=== PATIENT | male | born 1970 | race Caucasian/White ===

== ENCOUNTER → 2020-03-08 09:18 | Outpatient (BNVA) | payer SELFPAY | PROVIDERS: PCP Internal Medicine; Visit Provider Physician Assistant | DX: Z02.79 Encounter for issue of other medical certificate (principal) ==

== ENCOUNTER 2020-12-23 07:39 | Outpatient (REF) | payer BC, SELFPAY | END 2020-12-23 07:40 | disposition home or self-care (01) | LOC: HO.LAB 07:39 | PROVIDERS: PCP Internal Medicine; Visit Provider Internal Medicine | DX: Z20.822 Contact with and (suspected) exposure to COVID-19 (principal) | CPT/HCPCS: C9803; U0003; U0005 ==

== ENCOUNTER 2021-11-29 13:11 | Outpatient (REF) | payer OTHER, SELFPAY ==
[2021-11-29 15:38] LABS: CT PCR NOT DETECTED (Not Detect.); NG PCR NOT DETECTED (Not Detect.)
[2021-11-30 04:01] LABS: HIV AB/AG Nonreactive (Nonreactive); HIV Num 1 0.07 S/CO (0.00-0.99)
[2021-11-30 05:45] LABS: Syphilis Screen Nonreactive (Nonreactive)
== END 2021-11-29 13:12 | disposition home or self-care (01) ==
LOC: HO.HMGCLDS 13:11
PROVIDERS: Visit Provider Internal Medicine
DX: Z11.3 Encounter for screening for infections with a predominantly sexual mode of transmission (principal); Z11.4 Encounter for screening for human immunodeficiency virus [HIV]
CPT/HCPCS: 36415; 86780; 87389; 87491; 87591

== ENCOUNTER → 2022-02-08 15:01 | Outpatient (BNVA) | payer SELFPAY | PROVIDERS: PCP Internal Medicine; Visit Provider Physician Assistant | DX: Z02.79 Encounter for issue of other medical certificate (principal) ==

== ENCOUNTER → 2022-08-09 10:10 | Outpatient (BNVA) | payer OTHER, SELFPAY | PROVIDERS: PCP Internal Medicine; Visit Provider Physician Assistant | DX: S46.211A Strain of muscle, fascia and tendon of other parts of biceps, right arm, initial encounter (principal); X58.XXXA Exposure to other specified factors, initial encounter; M75.01 Adhesive capsulitis of right shoulder; M25.811 Other specified joint disorders, right shoulder | CPT/HCPCS: 73030; 99204 ==

== ENCOUNTER → 2022-08-21 09:07 | Outpatient (BNVA) | payer OTHER, SELFPAY | PROVIDERS: PCP Internal Medicine; Visit Provider Physician Assistant Medical | DX: S46.211D Strain of muscle, fascia and tendon of other parts of biceps, right arm, subsequent encounter (principal); X50.0XXD Overexertion from strenuous movement or load, subsequent encounter; M75.01 Adhesive capsulitis of right shoulder; M25.811 Other specified joint disorders, right shoulder | CPT/HCPCS: 99213 ==

== ENCOUNTER 2022-08-30 17:32 | Outpatient (REF) | payer OTHER, SELFPAY ==
--- NOTE | ~2022-08-30 | MR_ITS ---
EXAMINATION: MR SHOULDER WITHOUT CONTRAST, RIGHT CLINICAL INFORMATION: Right shoulder pain and decreased range of motion. Lifting injury. Evaluate for a biceps tendon tear. COMPARISON: Right shoulder radiographs dated 08/09/2022. TECHNIQUE: MRI of the shoulder without contrast was performed on a high-field scanner. FINDINGS: ROTATOR CUFF: Full-thickness versus near full-thickness bursal surface tearing of the supraspinatus tendon measuring up to 2.4 x 1.7 cm (AP by ML). There may be thin articular surface tendon fibers remaining intact. Mild infraspinatus tendinosis with distal intrasubstance/articular surface fraying/partial tearing with fluid extending proximally along the myotendinous junction. Mild subscapularis tendinosis. No muscle atrophy or fatty infiltration. BICEPS: Absence of the proximal long head biceps tendon, consistent with a complete tear and tendon retraction. CORACOACROMIAL ARCH: The undersurface of the acromion is flat with small subacromial spurs. Severe acromioclavicular osteoarthritis. Fluid and edema within the subacromial-subdeltoid bursa which may represent mild bursitis or be related to a full-thickness component of the rotator cuff tendon tear. LABRUM/CAPSULE: Increased T2 signal and heterogeneity throughout the superior, posterosuperior, and posterior labrum, consistent with degenerative tearing. Intact inferior joint capsule. GLENOHUMERAL JOINT/MARROW: Mild articular cartilage signal heterogeneity with tiny marginal osteophytes. Posterosuperior glenoid subchondral cystic change. Trace joint effusion. MR/MR shoulder RT wo con IMPRESSION: 1. Full-thickness versus near full-thickness bursal surface tear of the supraspinatus tendon measuring 2.4 x 1.7 cm (AP x ML) with thin articular surface tendon fibers remaining intact. Mild infraspinatus tendinosis with distal intrasubstance/articular surface fraying/partial tearing. Mild subscapularis tendinosis. 2. Complete tear and retraction of the proximal long head biceps tendon. 3. Severe acromioclavicular osteoarthritis with small subacromial spurs. Fluid and edema within the subacromial-subdeltoid bursa which may represent mild bursitis or be related to a full-thickness component of the rotator cuff tendon tear. 4. Degenerative tearing throughout the superior, posterosuperior, and posterior labrum. 5. Mild glenohumeral osteoarthritis and trace joint effusion.
== END 2022-08-30 17:33 | disposition home or self-care (01) ==
LOC: HO.MRI 17:32
PROVIDERS: Visit Provider Physician Assistant Medical
DX: S46.001D Unspecified injury of muscle(s) and tendon(s) of the rotator cuff of right shoulder, subsequent encounter (principal)
CPT/HCPCS: 73221

== ENCOUNTER → 2022-09-05 08:38 | Outpatient (BNVA) | payer OTHER, SELFPAY | PROVIDERS: PCP Internal Medicine; Visit Provider Physician Assistant Medical | DX: S46.211D Strain of muscle, fascia and tendon of other parts of biceps, right arm, subsequent encounter (principal); X58.XXXD Exposure to other specified factors, subsequent encounter; M75.01 Adhesive capsulitis of right shoulder; M25.811 Other specified joint disorders, right shoulder | CPT/HCPCS: 99213 ==

== ENCOUNTER 2022-09-14 08:03 | Outpatient (REF) | payer OTHER, SELFPAY ==
--- NOTE | ~2022-09-14 | XR_ITS ---
EXAMINATION: XR SHOULDER, RIGHT CLINICAL INFORMATION: Pain. COMPARISON: MRI right shoulder dated 08/30/2022; right shoulder radiographs dated 08/09/2022. TECHNIQUE: AP external rotation, Grashey, scapular Y, and axillary views of the right shoulder. FINDINGS: Bony alignment and mineralization are normal. The glenohumeral joint is intact. The acromioclavicular and coracoclavicular intervals are normal. There is mild osteoarthritic change of the right acromioclavicular joint. A small distal acromial osteophyte is seen, and there is cortical irregularity of the greater tuberosity of the proximal right humerus. There is mild calcific tendinitis of the right rotator cuff. No foreign body is seen. There is no right pneumothorax XR/XR shoulder RT min 2V IMPRESSION: 1. No fracture or dislocation is seen. 2. There is mild osteoarthritic change of the right acromioclavicular joint. 3. Findings are consistent with right rotator cuff impingement and mild calcific tendinitis.
== END 2022-09-14 08:04 | disposition home or self-care (01) ==
LOC: HO.HOSX 08:03
PROVIDERS: Visit Provider Orthopaedic Surgery
DX: M75.101 Unspecified rotator cuff tear or rupture of right shoulder, not specified as traumatic (principal)
CPT/HCPCS: 73030; 99202

== ENCOUNTER → 2022-09-21 09:21 | Outpatient (BNVA) | payer OTHER, SELFPAY | PROVIDERS: PCP Internal Medicine; Visit Provider Orthopaedic Surgery | DX: M75.101 Unspecified rotator cuff tear or rupture of right shoulder, not specified as traumatic (principal); S46.211A Strain of muscle, fascia and tendon of other parts of biceps, right arm, initial encounter | CPT/HCPCS: 99212 ==

== ENCOUNTER 2022-10-27 12:22 | Outpatient (AMB) | payer OTHER, SELFPAY ==
[2022-10-27 12:33] VITALS: BMI 31.6
--- NOTE | 2022-10-27 12:33 | A.OFFVIS_ITS ---
Intake Vital Signs 10/27/22 12:33 Height 5 ft 10 in Weight 220 lb BMI 31.6 Intake Visit Reasons: Pre-Op RT RTC repair 11/01/22NE Intake Note: Jonathan 52 yr old male presents today for his Pre-op visit for his right RTC repair schedule for 11/01/[address] Gill. Pain management agreement signed and reviewed. Allergies No Known Allergies Allergy (Unverified 10/27/22 12:35) HPI Pre-Op RT RTC repair 11/01/22NE HPI Details 52-year-old 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 male who presents in the office today for his preoperative history and physical exam prior to a right rotator cuff repair to be performed on 11/01/[address] Gill. This is a work related injury. 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 Patient has no known allergy history. Patient is currently taking, as follows: -Methocarbamol 750 mg PO Q8H PRN Patient has no known medical history. Patient has no known surgical history. Patient has a social history, as follows: -Tobacco; current user, 1 pack per day. 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 Review of Systems Const All systems reviewed & are unremarkable except as noted in HPI and below Physical Exam Vital Signs: BMI result Body Mass Index 31.6 Const General: cooperative, healthy appearing, comfortable, no acute distress, well developed, alert and awake Orientation/consciousness: patient oriented x3 HEENT Head: Yes normal to inspection, Yes normocephalic and Yes atraumatic Eyes General: appearance normal, both eyes and all related structures EOM: EOMs intact bilaterally Neck Neck: Yes normal visual inspection and Yes no lymphadenopathy Resp Effort & Inspection: normal respiratory effort and able to speak in complete sentences Cardio Jugular venous distension: no JVD Rate: regular rate Peripheral pulses: Peripheral pulses 2+ throughout GI Inspection: Yes normal to inspection Palpation (GI): Soft to palpation Skin General skin exam: no rashes or lesions noted Rashes: no rashes Neuro General: patient oriented x3 Extrem Other: Right Shoulder: + H&N 4+/5 strength with empty can Painful but - liftoff Psych Appearance: grossly normal Mental Status: mental status grossly normal Affect: normal affect Attitude: cooperative Assessment & Plan Assessment & Plan (1) Unspecified rotator cuff tear or rupture of right shoulder, not specified as traumatic: Code(s): M75.101 - Unspecified rotator cuff tear or rupture of right shoulder, not specified as traumatic (2) Traumatic partial tear of right biceps tendon: Code(s): S46.211A - Strain of muscle, fascia and tendon of other parts of biceps, right arm, initial encounter Plan Mr. Mayfield is a 52-year-old 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 male who presents in the office today for his preoperative history and physical exam prior to a right rotator cuff repair to be performed on 11/01/[address] Gill. This is a work related injury. 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 Patient has no known allergy history. Patient is currently taking, as follows: -Methocarbamol 750 mg PO Q8H PRN Patient has no known medical history. Patient has no known surgical history. Patient has a social history, as follows: -Tobacco; current user, 1 pack per day. I discussed in detail the procedure and what to expect pre and post operatively. We discussed the risks, benefits and alternatives to the surgery as well as the rehabilitation course. The risks; which include, but are not limited to infection, bleeding, nerve injury, ongoing pain, swelling, and stiffness, perioperative risk of injury to bones and soft tissues, and blood clots. I have answered all questions and with their understanding they have consented to move forward with a right arthroscopic rotator cuff repair to be performed on 11/01/[address] Jonathan Gill. Follow up will be at the post operative appointment on 11/09/2022 at 10:00 am, or sooner if needed. Patient Instructions: Scribed for Emely Chambers PA-C by paul Arvizu scribe, on 10/27/2022 at 12:20 pm, EST. Coding Level of Care Code Global (82320) Diagnoses Unspecified rotator cuff tear or rupture of right shoulder, not specified as traumatic M75.101 Traumatic partial tear of right biceps tendon S46.211A
== END 2022-10-27 12:48 | disposition home or self-care (01) ==
PROVIDERS: PCP Internal Medicine; Visit Provider Physician Assistant
DX: M75.101 Unspecified rotator cuff tear or rupture of right shoulder, not specified as traumatic (principal); S46.211A Strain of muscle, fascia and tendon of other parts of biceps, right arm, initial encounter
CPT/HCPCS: 99024

== ENCOUNTER → 2022-10-27 12:22 | Outpatient (BNVA) | payer OTHER, SELFPAY | PROVIDERS: PCP Internal Medicine; Visit Provider Physician Assistant ==

== ENCOUNTER 2022-11-01 07:53 | Day surgery (SDC) | payer OTHER, SELFPAY ==
[2022-10-30 09:55] VITALS: BMI 31.6
--- NOTE | 2022-10-31 08:44 | P.CONAN_ITS ---
Documented by User: Poly Rodriges NP 10/31/22 09:04 HPI - Anesthesia Eval Consult details Narrative: 52yo M for Right Arthroscopic Rotator Cuff Repair PMFSH Active Problems Active Problems: All Active Problems (Updated 09/21/22 @ 09:34 by Blaine Mobley) Traumatic partial tear of right biceps tendon (Acute) Unspecified rotator cuff tear or rupture of right shoulder, not specified as traumatic (Acute) Right shoulder pain (Acute) Screening for STD (sexually transmitted disease) (Acute) Chalazion right eye, unspecified eyelid (Acute) Past Medical History Medical History Arthritis Back pain Gout Obesity Sinus tachycardia Tobacco abuse Surgical History Surgical History Hx of colonoscopy Hx of inguinal hernia repair Hx of tonsillectomy Hx of umbilical hernia repair Social History Social History Patient Tobacco Use Status: Current everyday Tobacco user Tobacco use type: Cigarette Cigarette Packs Per Day: 1 Cigarettes Per Day: 20 Use of substances other than those prescribed or required for medical reasons: Yes Substance Use Frequency: Occasionally Are you DNR?: No Advance Directives: No Advance Directives Information Provided: Yes Current occupational status: employed 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, 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 Meds Allergies Allergy/AdvReac Type Severity Reaction Status Date / Time No Known Allergies Allergy Verified 11/01/22 08:10 Exam Exam Date and Time: October 31, 2022 0844 Height,Weight and Vital Signs: Height 5 ft 10 in Weight 99.79 kg Assessment and Plan Assessment Anesthesia Assessment: Chart Reviewed Documented by User: Shanice Conde MD 11/01/22 08:49 PMFSH Past Medical History Medical History Arthritis Back pain Gout Obesity Sinus tachycardia Tobacco abuse Family History Family history of problems with anesthesia: No Surgical History Surgical History Hx of colonoscopy Hx of inguinal hernia repair Hx of tonsillectomy Hx of umbilical hernia repair History of Problems with Anesthesia: No Social History Social History Patient Tobacco Use Status: Current everyday Tobacco user Tobacco use type: Cigarette Cigarette Packs Per Day: 1 Cigarettes Per Day: 20 Use of substances other than those prescribed or required for medical reasons: Yes Substance Use Frequency: Occasionally Are you DNR?: No Advance Directives: No Advance Directives Information Provided: Yes Current occupational status: employed 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 Discussed Final Anesthetic Review Family History of Problems with Anesthesia: No History of Problems with Anesthesia: No NPO: Yes ASA Class: III Final Preanesthetic Review: No Changes in Pt Med Stat, Meds/Allgs Chart Reviewed, Consent Obtained/Reviewed and Anes Risks/Benef Reviewed Patient Risk: Intermediate Procedure Risk: Intermediate Anesthetic Plan Anesthetic Plan: GA Disposition: Standard PACU
[2022-11-01] VITALS (7 sets, daily range): BP systolic 122–135; BP diastolic 73–86; PULSE 83–94; RESP 12–22; TEMP 36.2–36.8; O2SAT 92–98; BMI 33.0
[2022-11-01] MEDS: Albuterol Sulfate (0.083%) 2.5 MG/3 ML VIAL.NEB INHALE (08:58)
--- NOTE | 2022-11-01 09:37 | MHC.SHP ---
Pre-Procedural Eval Section A Date of Service: 11/01/22 The patient is an INPATIENT: No Changes since office visit: No Cold of Flu in the past 2 weeks, No New Medical Problems, No Changes in Medication and No Patient answered all questions The History & Physical has been completed within 30 days and I have reviewed it.: Yes Section B Chief Complaint: Unspecified rotator cuff tear or rupture of right Allergies: Allergies Allergy/AdvReac Type Severity Reaction Status Date / Time No Known Allergies Allergy Verified 11/01/22 08:10 Plan I have reviewed the history and physical and performed a pertinent physical examination on my patient. No changes have occurred unless specified. Time Spent With Patient Time: Total time managing care of this patient today ____ minutes.
--- NOTE | 2022-11-01 11:45 | PM.OP ---
Brief Operative Note Date of Service: 11/01/22 Pre-op diagnosis: Right RTC tear Post-op diagnosis: same Procedure: R rtc repair Implants: [employer]son [employer]hew Helacoil x 4 Surgeon: Jonathan Gill MD Anesthesia: GETA and regional Was an Community Support Professional used for this Procedure?: Yes Community Support Professional: Emely Chambers Estimated blood loss (mL): 20 IV fluids (mL): 1,000 Pathology: none sent Condition: stable Disposition: PACU
--- NOTE | 2022-11-03 15:31 | P.OP_ITS ---
Operative Note Operative Note Date of Service: 11/01/22 Narrative: Date of Service: 11/01/22 Pre-op diagnosis: Right RTC tear Post-op diagnosis: same Procedure: R rtc repair Implants: [employer]hew Helacoil x 4 Surgeon: Jonathan Gill MD Anesthesia: GETA and regional Was an Linux System Admin used for this Procedure?: Yes Linux System Admin: Emely Chambers Estimated blood loss (mL): 20 IV fluids (mL): 1,000 Pathology: none sent Condition: stable Disposition: PACU Procedure in detail: Patient was brought to the operating room and placed the the beach chair position. All bony prominences were well padded and the limb was prepped and draped in standard sterile fashion. A time out was called to identify proper site, proper procedure and proper surgeon. IV antibiotics per weight were administered. I began by making a posterolateral stab incision with a 15 blade. A blunt trochar was placed into the glenohumeral joint and I insufflated the joint with saline and a 30 degree arthroscope was placed. I established an outside- in anterior portal just distal to the biceps tendon. I then began my inspection of the glenohumeral joint. There was a torn and retracted biceps that was torn at the labral anchor with associated degenerative tearing of the labrum circumferentially with G1 change at the inferior glenoid without associated humeral head changes. There was a full thickness undersurface RTC tear. The subcapularis was intact with a low grade partial insertional tear. I debrdied the loose cartilage of the glenoid and the degenerative labral tearing circumferentially as well as the stump of the biceps. I then removed the trochar and entered the subacromial space. A direct lateral portal was then established and I performed a bursectomy. The cuff was then examined. There was a full thickness tear of the supra and infraspinatus without retraction. The tear was mobile. I then placed two medial row double loaded anchors and then brought the suture tape through the medial cuff. I then debrided the bare area down to bleeding bone and, using a cross bridge configuration, brought four limbs to each of two lateral 5.0 anchors. This re- approximated the cuff anatomy near anatomically. I then performed a 5 mm subacromial decompression. Once I was satisfied with the repair final images were captured and I removed all instrumentation. Portals were closed with nylon. Patient was placed in an abduction sling, extubated and brought to the recovery room in stable condition. There were no known complications.
== END 2022-11-01 13:33 | disposition home or self-care (01) ==
PROVIDERS: PCP Internal Medicine; Visit Provider Orthopaedic Surgery
PROC: (CPT 29827; principal; 2022-11-01 09:50)
DX: S46.011A Strain of muscle(s) and tendon(s) of the rotator cuff of right shoulder, initial encounter (principal); S46.111A Strain of muscle, fascia and tendon of long head of biceps, right arm, initial encounter; M19.011 Primary osteoarthritis, right shoulder; X50.0XXA Overexertion from strenuous movement or load, initial encounter; Y93.H3 Activity, building and construction; Y92.9 Unspecified place or not applicable; Y99.0 Civilian activity done for income or pay; M54.50 Low back pain, unspecified; M10.9 Gout, unspecified; E66.9 Obesity, unspecified; F17.210 Nicotine dependence, cigarettes, uncomplicated; Z79.899 Other long term (current) drug therapy
CPT/HCPCS: 29827; 29826; 94640; C1713; J0131; J0171; J0690; J1100; J1885; J2405; J2795; J3010

== ENCOUNTER → 2022-11-01 07:53 | Outpatient (BNV) | payer OTHER, SELFPAY | PROVIDERS: PCP Internal Medicine; Visit Provider Orthopaedic Surgery | DX: S46.011A Strain of muscle(s) and tendon(s) of the rotator cuff of right shoulder, initial encounter (principal); M75.21 Bicipital tendinitis, right shoulder | CPT/HCPCS: 29823; 29826; 29827 ==

== ENCOUNTER 2022-11-09 09:59 | Outpatient (AMB) | payer OTHER, SELFPAY ==
--- NOTE | 2022-11-09 10:01 | MHC.OFFVIS ---
Intake Vital Signs 11/09/22 10:04 Height 5 ft 10 in Weight 230 lb BMI 33.0 Intake Visit Reasons: PO RT RTC repair 11/01/22NE Intake Note: Jonathan is a 52 year old male presents today for his post op visit for his right RTC repair schedule for 11/01/22 NE. Patient reports no pain or discomfort. Denies numbness and tingling. Allergies No Known Allergies Allergy (Verified 11/09/22 10:01) HPI PO RT RTC repair 11/01/22NE HPI Details 52-year-old 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 male who presents in the office today 1 week status post right rotator cuff repair, which was performed on 11/01/[address] Gill. The patient reports no pain or discomfort while in the office today. He denies numbness or tingling. 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 Sutures intact. No surround erythema or drainage. No signs of infection. NVI. Assessment & Plan Assessment & Plan (1) Status post rotator cuff repair: Comment: 11/01/2022 NE Code(s): Z98.890 - Other specified postprocedural states Plan Mr. Mayfield is a 52-year-old 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 male who presents in the office today 1 week status post right rotator cuff repair, which was performed on 11/01/[address] Gill. The patient reports no pain or discomfort while in the office today. He denies numbness or tingling. Sutures were removed and steri-stripes were applied while in the office today. He will remain in the sling. He was given an out of work note stating he is out of work until follow up. Follow up will be in [address] Gill, or sooner if needed. Patient Instructions: Scribed for Emely Chambers PA-C by Kacey Frazier medical bill processor, on 11/09/2022 at 10:03 am, EST. Coding Level of Care Code Global (43953) Diagnoses Status post rotator cuff repair Z98.890
[2022-11-09 10:04] VITALS: BMI 33.0
== END 2022-11-09 11:14 | disposition home or self-care (01) ==
PROVIDERS: PCP Internal Medicine; Visit Provider Physician Assistant
DX: Z98.890 Other specified postprocedural states (principal)
CPT/HCPCS: 99024

== ENCOUNTER → 2022-11-09 09:59 | Outpatient (BNVA) | payer OTHER, SELFPAY | PROVIDERS: PCP Internal Medicine; Visit Provider Physician Assistant ==

== ENCOUNTER 2022-12-07 09:35 | Outpatient (AMB) | payer OTHER, SELFPAY ==
--- NOTE | 2022-12-07 09:42 | MHC.OFFVIS ---
Intake Intake Visit Reasons: PO RT RTC repair 11/01/22NE Intake Note: Jonathan is a 52 year old male who presents today for a post operative appointment s/p Right RTC repair 11/01/22 NE. Patient reports that he is doing well and is making improvementls as time goes on . He is working with PT and it is going well. SOme increased pain after PT. Allergies No Known Allergies Allergy (Verified 11/09/22 10:01) HPI PO RT RTC repair 11/01/22NE HPI Details This is 32-year-old who is just over 4 weeks status post right rotator cuff repair. He is doing well. He is working with therapy. He has no complaints. 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 May discontinue sling in 2 weeks and follow up in 4 weeks. Continue PT. Coding Level of Care Code Global (48526) Diagnoses Status post rotator cuff repair Z98.890
== END 2022-12-07 09:55 | disposition home or self-care (01) ==
PROVIDERS: PCP Internal Medicine; Visit Provider Orthopaedic Surgery
DX: Z98.890 Other specified postprocedural states (principal)
CPT/HCPCS: 99024

== ENCOUNTER → 2022-12-07 09:35 | Outpatient (BNVA) | payer OTHER, SELFPAY | PROVIDERS: PCP Internal Medicine; Visit Provider Orthopaedic Surgery ==

== ENCOUNTER 2023-01-12 09:41 | Outpatient (AMB) | payer OTHER, SELFPAY ==
--- NOTE | 2023-01-12 09:43 | A.OFFVIS_ITS ---
Intake Intake Visit Reasons: PO- RT RTC repair 11/01/22NE Intake Note: Jonathan is a 52 year old 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 male who presents today for a post operative appointment s/p Right RTC 11/01/22. Patient rpeorts that he is getting better, he has no concerns just wondering when he is able to return back to regular activity. Allergies No Known Allergies Allergy (Verified 01/12/23 09:47) HPI PO- RT RTC repair 11/01/22NE HPI Details Jonathan is a 52 year old man who presents ~9 weeks S/P right RTC repair. He continues to do well and has discontinued his sling. He continues to work with PT and says this is helpful for him. He has no complaints today, but wonders when he can return to normal activities. 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 Review of Systems Const All systems reviewed & are unremarkable except as noted in HPI and below Physical Exam Const General: no acute distress, alert and awake Orientation/consciousness: patient oriented x3 HEENT Head: Yes normocephalic and Yes atraumatic Eyes EOM: EOMs intact bilaterally Resp Effort & Inspection: normal respiratory effort and able to speak in complete sentences Cardio Jugular venous distension: no JVD Skin General skin exam: turgor normal Rashes: no rashes Neuro General: patient oriented x3 Extrem Other: 45/90 Neg EC Psych Appearance: grossly normal Affect: normal affect Attitude: cooperative Assessment & Plan Assessment & Plan (1) Status post rotator cuff repair: Comment: 11/01/2022 NE Code(s): Z98.890 - Other specified postprocedural states Plan: This is a 52 year old man S/P right rotator cuff repair, DOS: 11/01/22. Doing well overall. He has discontinued his sling and continues to work with PT. He will continue to avoid any lifting or overhead activities. f/u april ROM and no heavy lifting Coding Level of Care Code Global (42830) Diagnoses Status post rotator cuff repair Z98.890
== END 2023-01-12 10:07 | disposition home or self-care (01) ==
PROVIDERS: PCP Internal Medicine; Visit Provider Orthopaedic Surgery
DX: Z98.890 Other specified postprocedural states (principal)
CPT/HCPCS: 99024

== ENCOUNTER → 2023-01-12 09:41 | Outpatient (BNVA) | payer OTHER, SELFPAY | PROVIDERS: PCP Internal Medicine; Visit Provider Orthopaedic Surgery ==

== ENCOUNTER 2023-02-09 09:17 | Outpatient (AMB) | payer OTHER, SELFPAY ==
[2023-02-09 09:21] VITALS: BP 160/90; PULSE 94; TEMP 36.6; O2SAT 97; BMI 33.0
--- NOTE | 2023-02-09 09:21 | MHC.OFFWIV ---
Intake Vital Signs 02/09/23 09:21 Height 5 ft 10 in Weight 230 lb BMI 33.0 BP 160/90 H Blood Pressure Location Rt brachial Position Sitting Pulse 94 Pulse Source Pulse Oximeter Temp 97.8 F Temp Source Temporal Artery Scan Pulse Oximetry (%) 97 Intake Visit Reasons: EP Rib Pain/fall in shower Intake Note: pt is here for c/o rib pain due to fall in shower Patient Tobacco Use Status: Current everyday Tobacco user Allergies No Known Allergies Allergy (Verified 02/09/23 09:40) Medication List - Last Reconciled 02/09/23 by Mannie Leigh MD No Known Home Meds Do you need a note to return to daycare/school/sports/work: Yes HPI EP Rib Pain/fall in shower HPI Details 52-year-old male presents to the office for a sick visit. S3 days ago patient slipped in the shower and fell landing on the left side. He felt some bruising which has completely resolved. Independently, he was going for physical therapy for right shoulder pain. The therapist once a note that he can resume physical therapy. Patient reports no symptoms of shortness of breath. 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 No visible bruising. Chest palpation & inspection: normal palpation of entire chest wall Resp Effort & Inspection: normal respiratory effort Neuro General: patient oriented x3 Assessment & Plan Assessment & Plan (1) Contusion, chest wall: Code(s): S20.219A - Contusion of unspecified front wall of thorax, initial encounter Plan: Self-limiting illness. Note to resume physical therapy given. Coding Level of Care Code Est Pt Level 3 (41600) Diagnoses Contusion, chest wall S20.219A
== END 2023-02-09 10:04 | disposition home or self-care (01) ==
PROVIDERS: PCP Internal Medicine; Visit Provider Internal Medicine
DX: S20.219A Contusion of unspecified front wall of thorax, initial encounter (principal)
CPT/HCPCS: 99213

== ENCOUNTER 2023-02-26 14:09 | Outpatient (AMB) | payer OTHER, SELFPAY ==
--- NOTE | 2023-02-26 14:12 | MHC.OFFVIS ---
Intake Vital Signs 02/26/23 14:13 Height 5 ft 10 in Weight 230 lb BMI 33.0 Intake Visit Reasons: ov- RT RTC repair 11/01/22NE Intake Note: Jonathan is a 53 year old male who presents today with his case mamager Camilla for a follow up of his right shoulder s/p Right RTC 11/01/22. Patient reports that his shoulder is gwtting better but is still feelign some pain with ROM. He is still working with physical therapy. Allergies No Known Allergies Allergy (Verified 02/09/23 09:40) HPI ov- RT RTC repair 11/01/22NE HPI Details Jonathan is a 53 year old man who presents ~4 months S/P right RTC repair. This was a workers comp injury. He says he is doing well and continues to work with PT. He continues to have some pain with ROM, but this is mild and slowly improving. He was told he needs to be seen at most every 6 weeks while he is out of work and on workers comp. 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 Review of Systems Const All systems reviewed & are unremarkable except as noted in HPI and below Physical Exam Vital Signs: BMI result Body Mass Index 33.0 Const General: no acute distress, alert and awake Orientation/consciousness: patient oriented x3 HEENT Head: Yes normocephalic and Yes atraumatic Eyes EOM: EOMs intact bilaterally Resp Effort & Inspection: normal respiratory effort and able to speak in complete sentences Cardio Jugular venous distension: no JVD Skin General skin exam: turgor normal Rashes: no rashes Neuro General: patient oriented x3 Extrem Other: 35/90/130 4+/5 EC neg lift off Psych Appearance: grossly normal Affect: normal affect Attitude: cooperative Assessment & Plan Assessment & Plan (1) Status post rotator cuff repair: Comment: 11/01/2022 [place] Code(s): Z98.890 - Other specified postprocedural states Plan: Doing well no ROM restrictions No lifting > 5 lbs No overhead wrok f/u 6-8 weeks Plan Scribed for Jonathan Gill MD by Blaine Mobley, medical lab tech instructor, on 02/26/23 at 2:20 PM, EST. Coding Level of Care Code Est Pt Level 3 (17524) Diagnoses Status post rotator cuff repair Z98.890
[2023-02-26 14:13] VITALS: BMI 33.0
== END 2023-02-26 14:45 | disposition home or self-care (01) ==
PROVIDERS: PCP Internal Medicine; Visit Provider Orthopaedic Surgery
DX: M75.101 Unspecified rotator cuff tear or rupture of right shoulder, not specified as traumatic (principal); Y99.0 Civilian activity done for income or pay; Z04.2 Encounter for examination and observation following work accident
CPT/HCPCS: 99213

== ENCOUNTER → 2023-02-26 14:09 | Outpatient (BNVA) | payer OTHER, SELFPAY | PROVIDERS: PCP Internal Medicine; Visit Provider Orthopaedic Surgery | DX: Z47.89 Encounter for other orthopedic aftercare (principal) | CPT/HCPCS: 99212 ==

== ENCOUNTER 2023-04-09 09:00 | Outpatient (RCR) | payer OTHER, SELFPAY ==
--- NOTE | 2022-11-10 12:18 | MHC.PT.EP ---
[facility] [place] Office [place] Office [place] Office [address] Jen Monahan [address] [phone] F: [phone] F: [phone] F: [phone] F: [phone] Physical Therapy Plan of Care Date of Evaluation: Date of Surgery: 11/01/22 Diagnosis: S/P SUPRASPINATIUS AND INFRASPINATUS REPAIR ON 11/01/22 () Assessment: SEVEN IS A 52 YO MALE WHO PRESENTS POD #9 FOR PT EVALUATION. UPON EXAM HE DEMONSTRATES THE EXPECTED IMPAIRMENTS OF DECREASED ROM, DECREASED STRENGTH, ALTERED POSTURE AND POSITIONING, INCREASED UPPER TRAP GUARDING, AND INCREASED PAIN AND EDEMA. FUNCTIONAL LIMITATIONS INCLUDE DECREASED ABILITY TO PERFORM HOMEMAKING AND SELF-CARE TASKS, DECREASED ABILITY TO PERFORM PUSHING, PULLING, LIFTING AND REACHING. INABILITY TO DRIVE AND PERFORM WORK TASKS, DECREASED PARTICIPATION IN COMMUNITY AND RECREATIONAL ACTIVITIES AND DISRUPTED SLEEP. THE PT IS A GOOD CANDIDATE FOR SKILLED PT DUE TO AGE, POTENTIAL REMEDIATION OF IMPAIRMENTS, TYPICAL DISEASE/CONDITION PROGRESSION AND PROGNOSIS, COMORBIDITIES, AND MOTIVATION. PT WOULD BENEFIT FROM TAILORED PROGRAM OF THERAPEUTIC ACTIVITIES, FUNCTIONAL TRAINING, POSTURAL EDUCATION, NEUROMUSCULAR RE-EDUCATION, AND MODALITIES NEEDED. 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 Manual therapy to restore motion and function. Therapeutic exercise to improve strength and flexibility. Neuromuscular re-education for posture and balance. Therapeutic activities to return to functional activities of daily living. Electronically signed by: ANNALISA PLUNKETT PT DPT Please sign and return to therapist. Thank you for your referral.
== END 2023-06-01 11:42 | disposition home or self-care (01) ==
LOC: HO.PT 09:00
PROVIDERS: PCP Internal Medicine; Visit Provider Orthopaedic Surgery
DX: M75.101 Unspecified rotator cuff tear or rupture of right shoulder, not specified as traumatic (principal); Z98.890 Other specified postprocedural states
CPT/HCPCS: 97110; 97140; 97161; 97530

== ENCOUNTER 2023-04-30 13:27 | Outpatient (AMB) | payer OTHER, SELFPAY ==
--- NOTE | 2023-04-30 13:35 | MHC.OFFVIS ---
Intake Intake Visit Reasons: OV-RT RTC repair 11/01/22NE Intake Note: Jonathan is a 53 year old male who presents today with his case mamager Camilla for a follow up of his right shoulder s/p Right RTC 11/01/22. Patient reports that he is doing well, he is wondering when he will be able to reutrn to work . 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 This was a workers comp injury. He says he is doing well and continues to work with PT. He has been following his weight restrictions. 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 He would like to know when he can return to work. 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 Review of Systems Const All systems reviewed & are unremarkable except as noted in HPI and below Physical Exam Const General: no acute distress, alert and awake Orientation/consciousness: patient oriented x3 HEENT Head: Yes normocephalic and Yes atraumatic Eyes EOM: EOMs intact bilaterally Resp Effort & Inspection: normal respiratory effort and able to speak in complete sentences Cardio Jugular venous distension: no JVD Skin General skin exam: turgor normal Rashes: no rashes Neuro General: patient oriented x3 Extrem Other: Full ROM Neg EC Neg lift off Calos deformity Psych Appearance: grossly normal Affect: normal affect Attitude: cooperative Assessment & Plan Assessment & Plan (1) Status post rotator cuff repair: Comment: 11/01/2022 NE Code(s): Z98.890 - Other specified postprocedural states Plan: S/p RTC repair on the right. May return to light duty with no lifting > 20 lbs and no overhead lifting. F/u 6 weeks Plan Prepared for Jonathan Gill MD by Blaine Mobley, medical insurance claims specialist, on 04/30/23 at 1:44 M, EST. Coding Level of Care Code Est Pt Level 3 (75718) Diagnoses Status post rotator cuff repair Z98.890
== END 2023-04-30 13:58 | disposition home or self-care (01) ==
PROVIDERS: PCP Internal Medicine; Visit Provider Orthopaedic Surgery
DX: M75.101 Unspecified rotator cuff tear or rupture of right shoulder, not specified as traumatic (principal); S46.211D Strain of muscle, fascia and tendon of other parts of biceps, right arm, subsequent encounter
CPT/HCPCS: 99213

== ENCOUNTER → 2023-04-30 13:27 | Outpatient (BNVA) | payer OTHER, SELFPAY | PROVIDERS: PCP Internal Medicine; Visit Provider Orthopaedic Surgery | DX: Z47.89 Encounter for other orthopedic aftercare (principal) | CPT/HCPCS: 99212 ==

== ENCOUNTER 2023-06-11 13:09 | Outpatient (AMB) | payer OTHER, SELFPAY ==
[2023-06-11 13:12] VITALS: BMI 33.0
--- NOTE | 2023-06-11 13:12 | A.OFFVIS_ITS ---
Intake Vital Signs 06/11/23 13:12 Height 5 ft 10 in Weight 230 lb BMI 33.0 Intake Visit Reasons: OV-RT RTC repair 11/01/22NE Intake Note: Jonathan is a 53 year old male who presents today with his case management coordinator Camilla for a follow up of his right shoulder s/p Right RTC 11/01/22. At his last visit he returned to work on light duty with no lifting > 20 lbs and no overhead lifting. PAtient reports that he is doing well, the arm gets very tired. He has been lifting 40-80lbs at work Allergies No Known Allergies Allergy (Verified 02/09/23 09:40) HPI OV-RT RTC repair 11/01/22NE HPI Details Jonathan is a 53 year old male who presents today with his case management coordinator Camilla for a follow up of his right shoulder s/p Right RTC 11/01/22. At his last visit he returned to work on light duty with no lifting > 20 lbs and no overhead lifting. PAtient reports that he is doing well, the arm gets very tired. 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 I recommend we increase his weight restriction to 40 lb with continued no overhead lifting. He should follow-up in 6-8 weeks. He has not yet reached MMI. Coding Level of Care Code Est Pt Level 3 (93720) Diagnoses Status post rotator cuff repair Z98.890
== END 2023-06-11 14:13 | disposition home or self-care (01) ==
PROVIDERS: PCP Internal Medicine; Visit Provider Orthopaedic Surgery
DX: S46.011D Strain of muscle(s) and tendon(s) of the rotator cuff of right shoulder, subsequent encounter (principal)
CPT/HCPCS: 99213

== ENCOUNTER → 2023-06-11 13:09 | Outpatient (BNVA) | payer OTHER, SELFPAY | PROVIDERS: PCP Internal Medicine; Visit Provider Orthopaedic Surgery | DX: Z47.89 Encounter for other orthopedic aftercare (principal) | CPT/HCPCS: 99212 ==

== ENCOUNTER 2023-08-03 10:42 | Outpatient (AMB) | payer OTHER, SELFPAY ==
--- NOTE | 2023-08-03 10:54 | A.OFFVIS_ITS ---
Vital Signs 08/03/23 10:55 Height 5 ft 10 in Weight 230 lb BMI 33.0 Intake Visit Reasons: OV-RT RTC repair 11/01/22NE-follow up Intake Note: Jonathan is a 53 year old male who presents today with his field case manager Jeremiah for a follow up of his right shoulder s/p Right RTC 11/01/22. He remains on Light duty with no heavy lifting over 40 lbs with no overhead lifting. Patient reports that this is going well, he has more discomfort in the bicep than the shoulder. Allergies No Known Allergies Allergy (Verified 02/09/23 09:40) HPI HPI OV-RT RTC repair 11/01/22NE-follow up: Details: Jonathan is 9 months status post right rotator cuff repair. 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 He still describes discomfort with overhead motion. He states overall he is feeling better and better. 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 I recommend he continue progressing his activity. He has no weight restrictions but I would continue no overhead work for another 3 months. I anticipate MMI approximately 3 months. He will see me back in 6 weeks. Coding Level of Care Code Est Pt Level 3 (55715) Diagnoses Status post rotator cuff repair Z98.890
[2023-08-03 10:55] VITALS: BMI 33.0
== END 2023-08-03 11:09 | disposition home or self-care (01) ==
PROVIDERS: PCP Internal Medicine; Visit Provider Orthopaedic Surgery
DX: S46.211D Strain of muscle, fascia and tendon of other parts of biceps, right arm, subsequent encounter (principal); Z04.2 Encounter for examination and observation following work accident
CPT/HCPCS: 99213

== ENCOUNTER → 2023-08-03 10:42 | Outpatient (BNVA) | payer OTHER, SELFPAY | PROVIDERS: PCP Internal Medicine; Visit Provider Orthopaedic Surgery | DX: Z47.89 Encounter for other orthopedic aftercare (principal) | CPT/HCPCS: 99212 ==

== ENCOUNTER 2023-09-14 10:44 | Outpatient (AMB) | payer OTHER, SELFPAY ==
--- NOTE | 2023-09-14 11:31 | A.OFFVIS_ITS ---
Vital Signs 09/14/23 11:33 Height 5 ft 10 in Weight 240 lb BMI 34.4 Handedness Right Intake Visit Reasons: OV-RT RTC repair 11/01/22NE-follow up Intake Note: Jonathan is a 53 year old 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 male who presents today with his nurse medical case manager Camilla for a follow up of his right shoulder s/p Right RTC Repair 11/01/2022. He remains on light duty with no overhead work, but has no weight restrictions. Anticipated MMI ~October. Patient reports he is feeling okay. He states he has completed PT and has been lifting more weight everyday during his daily routines but has not been lifting over head. He would like to know when he can go back to 100% normal activity. Allergies No Known Allergies Allergy (Verified 09/14/23 11:33) HPI HPI OV-RT RTC repair 11/01/22NE-follow up: Details: Jonathan is a 53 year old 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 male who presents today with his nurse medical case manager Camilla for a follow up of his right shoulder s/p Right RTC Repair 11/01/2022. He remains on light duty with no overhead work, but has no weight restrictions. Anticipated MMI ~October. Patient reports he is feeling okay. He states he has completed PT and has been lifting more weight everyday during his daily routines but has not been lifting over head. He would like to know when he can go back to 100% normal activity. 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 Jonathan continues to do well. 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 I recommend he continue his current work restrictions with no overhead lifting. I will see him back in 6 weeks and at that time I anticipate a return to unrestricted work activity. Coding Level of Care Code Est Pt Level 3 (09653) Diagnoses Status post rotator cuff repair Z98.890
[2023-09-14 11:33] VITALS: BMI 34.4
== END 2023-09-14 12:03 | disposition home or self-care (01) ==
PROVIDERS: PCP Internal Medicine; Visit Provider Orthopaedic Surgery
DX: Z47.89 Encounter for other orthopedic aftercare (principal); S46.011D Strain of muscle(s) and tendon(s) of the rotator cuff of right shoulder, subsequent encounter; Z04.2 Encounter for examination and observation following work accident
CPT/HCPCS: 99213

== ENCOUNTER → 2023-09-14 10:44 | Outpatient (BNVA) | payer OTHER, SELFPAY | PROVIDERS: PCP Internal Medicine; Visit Provider Orthopaedic Surgery | DX: Z47.89 Encounter for other orthopedic aftercare (principal) | CPT/HCPCS: 99212 ==

== ENCOUNTER 2023-11-16 10:58 | Outpatient (AMB) | payer OTHER, SELFPAY ==
[2023-11-16 10:59] VITALS: BMI 34.4
--- NOTE | 2023-11-16 10:59 | MHC.OFFVIS ---
Vital Signs 11/16/23 10:59 Height 5 ft 10 in Weight 240 lb BMI 34.4 Intake Visit Reasons: OV-RT RTC repair 11/01/22NE- 6 wk follow up Intake Note: Patient states he is doing well just a little soreness once in while without medication. Patent has returned to work with minimum restrictions. He states overall he is doing well. Allergies No Known Allergies Allergy (Verified 11/16/23 11:03) HPI HPI OV-RT RTC repair 11/01/22NE- 6 wk follow up: Details: Patient states he is doing well just a little soreness once in while without medication. Patent has returned to work with minimum restrictions. He states overall he is doing well. He is working unrestricted and has no complaints. Occasional mild difficulty with overhead heavy lifting. 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 He is doing well and is able to work without formal restriction. He has reached MMI. I do recommend that he avoid heavy overhead lifting as I would anyone who is s/p large RTC repair and works with heavy lifting. He understands this and may follow up as needed. Coding Level of Care Code Est Pt Level 3 (81794) Diagnoses Status post rotator cuff repair Z98.890
== END 2023-11-16 11:30 | disposition home or self-care (01) ==
PROVIDERS: PCP Internal Medicine; Visit Provider Orthopaedic Surgery
DX: S46.211D Strain of muscle, fascia and tendon of other parts of biceps, right arm, subsequent encounter (principal); Z47.89 Encounter for other orthopedic aftercare; Z04.2 Encounter for examination and observation following work accident
CPT/HCPCS: 99213

== ENCOUNTER → 2023-11-16 10:58 | Outpatient (BNVA) | payer OTHER, SELFPAY | PROVIDERS: PCP Internal Medicine; Visit Provider Orthopaedic Surgery | DX: Z09 Encounter for follow-up examination after completed treatment for conditions other than malignant neoplasm (principal) | CPT/HCPCS: 99212 ==

== ENCOUNTER → 2024-02-13 14:36 | Outpatient (BNVA) | payer SELFPAY | PROVIDERS: PCP Internal Medicine; Visit Provider Physician Assistant Medical | DX: Z02.79 Encounter for issue of other medical certificate (principal) ==

== ENCOUNTER 2025-01-22 07:27 | Outpatient (REF) | payer SELFPAY ==
--- NOTE | ~2025-01-22 | XR_ITS ---
EXAMINATION: XR SHOULDER, RIGHT CLINICAL INFORMATION: M25.519 - Pain in unspecified shoulder COMPARISON: 09/14/2022 TECHNIQUE: Three views of the right shoulder. FINDINGS: Normal bone mineralization. No fracture, dislocation, or suspicious bone lesion. Normal alignment. There are 2 surgical anchors in the greater tuberosity from prior rotator cuff repair. The glenohumeral joint demonstrates stable mild degenerative arthritis. The AC joint demonstrates stable moderate spurring both superior and undersurface. There is a neutral lateral acromion. No undersurface spurring. The subacromial space is preserved. Remainder of the soft tissue and bony structures appear normal. XR/XR shoulder RT min 2V IMPRESSION: 1. No acute bony or soft tissue abnormality of the right shoulder. 2. Prior rotator cuff repair. 3. Mild degenerative arthritis in the glenohumeral joint. 4. Moderate degenerative spurring of the AC joint. Electronically signed by: Randolph Arteaga MD 01/22/2025 10:38 AM [facility]
== END 2025-01-22 07:28 | disposition home or self-care (01) ==
LOC: HO.HOSX 07:27
PROVIDERS: Visit Provider Orthopaedic Surgery
DX: Z98.890 Other specified postprocedural states (principal); M25.512 Pain in left shoulder
CPT/HCPCS: 73030; 99212

== ENCOUNTER 2025-01-22 10:12 | Outpatient (AMB) | payer SELFPAY ==
--- NOTE | 2025-01-22 10:13 | A.OFFVIS_ITS ---
Intake Visit Reasons: OV-experiencing pain in the right shoulder Intake Note: Jonathan is a 54 year old 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 male who presents today for a follow up of his right shoulder. Hx of RT RTC repair 11/01/22 - Large Repair protocol. He was last seen in 2023 where it was believed that he reached MMI and should continued to avoid heavy lifting. He reports that his shoulder was feeling better, but it has become increasingly painful. He had sudden onset of pain whenlifting a recycling bin. Allergies No Known Allergies Allergy (Verified 11/16/23 11:03) HPI HPI OV-experiencing pain in the right shoulder: Details: Jonathan is a 54 year old 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 male who presents today for a follow up of his right shoulder. Hx of RT RTC repair 11/01/22 - Large Repair protocol. He was last seen in 2023 where it was believed that he reached MMI and should continued to avoid heavy lifting. He reports that his shoulder was feeling better, but it has become increasingly painful. He had sudden onset of pain whenlifting a recycling bin. 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 RTC anchors in place and unchanged from prior Assessment & Plan Assessment & Plan (1) Status post rotator cuff repair: Comment: 11/01/2022 NE Code(s): Z98.890 - Other specified postprocedural states Category: Surgical Plan: 2 years s/p lg RTC repair. [place] like he tweeked his shoulder last week but improving already and no evidence of re injury. May continue activity as toelrated. Orders: Orders XR shoulder RT min 2V 01/22/25 M25.519 - Pain in unspecified shoulder Coding Level of Care Code Est Pt Level 3 (54911) Diagnoses Status post rotator cuff repair Z98.890
== END 2025-01-22 10:56 | disposition home or self-care (01) ==
LOC: HO.HOS 10:12
PROVIDERS: PCP Internal Medicine; Visit Provider Orthopaedic Surgery
DX: M25.511 Pain in right shoulder (principal); Z98.890 Other specified postprocedural states
CPT/HCPCS: 99213

== ENCOUNTER → 2025-01-22 10:26 | Outpatient (BNV) | payer SELFPAY | PROVIDERS: Visit Provider Radiology Diagnostic Radiology | DX: M75.111 Incomplete rotator cuff tear or rupture of right shoulder, not specified as traumatic (principal); M19.011 Primary osteoarthritis, right shoulder | CPT/HCPCS: 73030 ==